=== PATIENT | female | born 1995 | race Caucasian/White ===

== ENCOUNTER 2018-12-17 03:29 | Emergency (ER) | payer BC, OTHER ==
[~2018-12-17] VITALS: Ht 154.9 cm; Wt 57.0 kg
[~2018-12-17 03:29] MED LIST: MAG355OR14 PO; ONDA4TAB14 PO; SULF1TAB31 PO
[2018-12-17 03:33] VITALS: BP 117/63; PULSE 73; RESP 18; Ht 154.9 cm; Wt 57.0 kg
[2018-12-17] MEDS ORDERED: ONDANSETRON (ODT) 4 MG TAB ODT STA (05:35)
--- NOTE | 2018-12-17 05:43 | ERD ---
ER Documentation Chief Complaint Chief Complaint epigastric pain,vomiting X1,constipation since yesterda HPI This is a 23 yo female patient who presents to the ER with c/o epigastric pain a nd vomiting x1 day. States she is constipated because she has not had BM today, however had "normal" BM yesterday. Reports waking up this morning and eating a bag of chips, then soda, and then only coffee and nothing else today. Pain and vomiting started this afternoon. No fever, no diarrhea, no recent illness. No sick contacts, no recent travel. LMP 1 week ago. ROS All systems reviewed and are negative except as per history of present illness. Medications Home Meds Active Scripts Mag Hydrox/Al Hydrox/Simeth (Maalox Advanced Suspension) 355 Ml Oral.susp, 10 ML PO BID PRN for dyspepsia for 7 Days, #150 ML Prov:ROYA PIÑA NP 12/17/18 Ondansetron (Ondansetron Odt) 4 Mg Tab.rapdis, 4 MG PO Q6H PRN for NAUSEA AND/OR VOMITING, #10 TAB Prov:ROYA PIÑA NP 12/17/18 Sulfamethoxazole/Trimethoprim* (Bactrim Ds* Tablet) 1 Each Tablet, 1 TAB PO BID for 3 Days, #6 TAB Prov:ROYA PIÑA NP 12/17/18 Allergies Allergies: Coded Allergies: No Known Allergy (Unverified , 12/17/18) PMhx/Soc Medical and Surgical Hx: pt denies Medical Hx, pt denies Surgical Hx Hx Alcohol Use: No Hx Substance Use: Yes (MARIJUANA 12/17/18) Hx Tobacco Use: No Smoking Status: Never smoker FmHx Family History: No diabetes, No coronary disease, No other Physical Exam Vitals Vital Signs Date Temp Pulse Resp B/P (MAP) Pulse Ox O2 O2 Flow FiO2 Time Delivery Rate 12/17/18 97.4 73 18 117/63 100 03:33 (81) Physical Exam Const: No acute distress Head: Atraumatic Eyes: Normal Conjunctiva ENT: Normal External Ears, Nose and Mouth. Pharynx pink, no lesions, no exudate Neck: Full range of motion. No meningismus. No lymphadenopeathy. Resp: Clear to auscultation bilaterally Cardio: Regular rate and rhythm, no murmurs Abd: Soft, mild tenderness @ epigastrum, non distended. Normal bowel sounds. Neg ward, neg rebound tenderness, no bruising, no masses. Skin: No petechiae or rashes Back: No midline or flank tenderness, no CVT Ext: No cyanosis, or edema Neur: Awake and alert Psych: Normal Mood and Affect Results 24 hrs Laboratory Tests Test 12/17/18 04:42 12/17/18 05:59 POC Beta HCG, Qualitative NEGATIVE Bedside Urine pH (LAB) 8.5 Bedside Urine Protein (LAB) 1+ Bedside Urine Glucose (UA) Negative Bedside Urine Ketones (LAB) Trace Bedside Urine Blood Trace-intact Bedside Urine Nitrite (LAB) Positive Bedside Urine Leukocyte Esterase (L Negative Current Medications Medications Dose Sig/Prabhakar Start Time Status Last (Trade) Ordered Route PRN Stop Time Admin Dose Reason Admin Ondansetron 4 mg ONCE STAT 12/17/18 DC 12/17/18 HCl (Zofran ODT 05:35 06:02 Odt) 12/17/18 05:42 40 ml ONCE ONCE 12/17/18 DC 12/17/18 Miscellaneous PO 06:00 06:02 Medication 12/17/18 06:01 (Gi Cocktail (2)) Procedures/MDM PROCEDURES/MDM LAB INTERPRETATION: UA: +nitrites, neg -Medications: Zofran, GI cocktail Patient tolerated medication well with no adverse reactions. Patient reported improvement in pain and nausea. MDM: There is low suspicion for pyelonephritis, vaginitis, STI, or interstitial cystitis due to absence of clinical findings that would support a diagnosis more serious than uncomplicated UTI. These diagnoses have been considered and excluded clinically. Nonetheless, it is understood by both the patient and provider that no clinical or diagnostic assessment can entirely exclude such diseases. Patient has been instructed on signs and symptoms of concern or with evolving condition with strict instructions to return to ED for reevaluation. DISPOSITION and PLAN: RX: bactrim, zofran, maalox The patient has been discharge home to follow-up with community physician. Departure Diagnosis: Primary Impression: Cystitis Additional Impression: Dyspepsia Condition: Stable ROYA PIÑA NP Dec 17, 2018 05:43
[2018-12-17] MEDS ORDERED: LIDOCAINE/MYLANTA 40 ML BTL PO ONE (06:00)
== END 2018-12-17 06:36 | disposition home or self-care (01) ==
LOC: FTE 03:29
DX: N30.90 Cystitis, unspecified without hematuria (principal)
CPT/HCPCS: 81003; 81025; Z7502; Z7610; 99283